=== PATIENT | female | born 1965 | race Caucasian/White ===

== ENCOUNTER 2018-05-12 10:05 | Emergency (ER) | payer OTHER ==
[~2018-05-12] VITALS: Ht 165.1 cm; Wt 86.2 kg
[2018-05-12] MEDS ORDERED: CRUTCH4 XX (11:39)
[2018-05-12] MEDS ORDERED: HYDR1TAB94 PO (11:41)
== END 2018-05-12 11:59 | disposition home or self-care (01) ==
LOC: ER 10:05
DX: S80.01XA Contusion of right knee, initial encounter (principal); F17.200 Nicotine dependence, unspecified, uncomplicated; Z88.0 Allergy status to penicillin; Z88.5 Allergy status to narcotic agent; Z88.1 Allergy status to other antibiotic agents; W01.0XXA Fall on same level from slipping, tripping and stumbling without subsequent striking against object, initial encounter
CPT/HCPCS: 29505; 73564; 99283-25

== ENCOUNTER 2022-12-30 00:12 | Emergency (ER) | payer OTHER ==
[~2022-12-30] VITALS: Ht 162.6 cm; Wt 86.2 kg
[~2022-12-30 00:12] MED LIST: CRUTCH4 XX; HYDR1TAB94 PO
[2022-12-30] MEDS ORDERED: CLONAZEPAM1 MG PO (00:57)
[2022-12-30] MEDS ORDERED: GABA100 PO (00:58)
[2022-12-30] MEDS ORDERED: Vistaril50 MG PO (00:58)
[2022-12-30] MEDS ORDERED: CATAPRES0.1 MG PO (00:58)
[2022-12-30] MEDS ORDERED: NALOXONE HCL4 MG (00:59)
[2022-12-30] MEDS ORDERED: METOPROLOL TART25 MG PO (00:59)
[2022-12-30] MEDS ORDERED: Phenergan25 M1 PO (00:59)
[2022-12-30] MEDS ORDERED: NICODERM CQ1 EA25 TD (01:00)
[2022-12-30] MEDS ORDERED: TRAZ50 PO (01:00)
[2022-12-30] MEDS ORDERED: NICORETTE2 M1 BC (01:01)
[2022-12-30] MEDS ORDERED: BUPRENORPHINE HC2 MG SL (01:02)
[2022-12-30 01:54] LABS: Albumin, Blood 3.1 g/dL (3.4-5.0); Albumin/Globulin Ratio 0.9 (0.8-1.8); Bilirubin, Total 0.8 mg/dL (0.1-1.0); Bun/Creatinine Ratio 32.7 (12.0-20.0); Calcium, Blood 8.4 mg/dL (8.5-10.1); Creatinine, Blood 0.7 mg/dL (0.40-1.00); Globulin, Blood 3.6 g/dL (2.2-4.0); Magnesium, Blood 1.7 mg/dL (1.6-2.4); Potassium, Blood 3.8 mmol/L (3.5-5.5); Total Protein, Blood 6.7 g/dL (6.4-8.2)
[2022-12-30 02:03] LABS: BASOPHILS ABSOLUTE AUTO 0.01 K/mm3 (0.00-0.23); BASOPHILS PERCENT AUTO 0 % (0-2); EOSINOPHILS ABSOLUTE AUTO 0.03 K/mm3 (0.00-0.68); EOSINOPHILS PERCENT AUTO 1 % (0-6); Hematocrit 45.1 % (33.0-51.0); Hemoglobin 15.9 g/dL (11.5-16.0); IMMATURE GRAN ABSOLUTE AUTO 0.01 K/mm3 (0.00-0.10); IMMATURE GRAN PERCENT AUTO 0 % (0-1); LYMPHOCYTES ABSOLUTE AUTO 0.87 K/mm3 (0.84-5.20); LYMPHOCYTES PERCENT AUTO 19 % (21-46); MONOCYTES ABSOLUTE AUTO 0.24 K/mm3 (0.16-1.47); MONOCYTES PERCENT AUTO 5 % (4-13); Mean Corpuscular HGB 30.2 pg (26.0-34.0); Mean Corpuscular HGB Conc 35.3 g/dL (31.5-36.5); Mean Corpuscular Volume 86 fL (80-100); Mean Platelet Volume 10.3 fL (9.1-12.4); NEUTROPHILS PERCENT AUTO 75 % (41-73); Platelet Count 119 K/mm3 (150-400); RDW Coefficient Variation 12.2 % (11.7-14.2); RDW Standard Deviation 38.1 fL (35.1-46.3); Red Blood Cell Count 5.26 M/mm3 (3.80-5.20); White Blood Cell Count 4.66 K/mm3 (4.00-11.30)
[2022-12-30 02:05] VITALS: BP 140/73
== END 2022-12-30 07:05 | disposition home or self-care (01) ==
LOC: ER 00:12
PROVIDERS: Student in an Organized Health Care Education/Training Program
DX: F11.23 Opioid dependence with withdrawal (principal); R45.1 Restlessness and agitation; I45.81 Long QT syndrome; Z88.0 Allergy status to penicillin; Z88.5 Allergy status to narcotic agent; Z88.1 Allergy status to other antibiotic agents; Z79.899 Other long term (current) drug therapy; J44.9 Chronic obstructive pulmonary disease, unspecified; F17.210 Nicotine dependence, cigarettes, uncomplicated
CPT/HCPCS: 80053; 83735; 85025; 93005; 93010; 96365; 96366; 96375; 99284-25; J2060; J3475; J7030